=== PATIENT | male | born 1980 ===

== ENCOUNTER 2018-09-16 06:38 | Day surgery (SDC) | payer OTHER ==
[~2018-09-16] VITALS: Ht 162.6 cm; Wt 69.0 kg
[2018-09-16] VITALS (11 sets, daily range): BP systolic 106–121; BP diastolic 68–76; PULSE 56–80; RESP 14–18; Ht 162.6 cm; Wt 69.0 kg
[2018-09-16] MEDS ORDERED: LACTATED RINGER'S 1,000 ML IV SCH (09:00)
--- NOTE | 2018-09-16 10:59 | HPN ---
Date/Time of Note Date/Time of Note DATE: 09/16/18 TIME: 10:59 Interval H&P Admission Note Pt. seen H&P reviewed: No system changes KARY SANZ M.D. September 16, 2018 10:59
[2018-09-16] MEDS ORDERED: COCAINE 4% 4 ML TOP ONE (12:49)
[2018-09-16] MEDS ORDERED: NEOMYC/POLYMYX/BACIT 30 GM OINT ONE (12:49)
[2018-09-16] MEDS ORDERED: LIDOCAINE 1%/EPI (1:100,000) (MDV) 20 ML ONE (12:49)
--- NOTE | 2018-09-16 13:09 | PREAC ---
Date/Time of Note Date/Time of Note DATE: 09/16/18 TIME: 13:07 Anesthesia Eval and Record Evaluation Time Pre-Procedure Interview DATE: 09/16/18 TIME: 13:07 Age 37 Sex male NPO: 8 hrs Preoperative diagnosis Septum deviation, Hypertrophic tonsils Planned procedure Ravindra septoplasty, turbinoplasty Past Medical History Past Medical History: None Surgery & Anesthesia Issues No known issue Meds Anticoagulation: No Beta Dejan within 24 hr: No Reason Beta Dejan not given: Pt. not on B-Dejan No Active Prescriptions or Reported Meds Current Medications Lactated Ringer's 1,000 ml @ 25 mls/hr Q24H IV Last administered on 09/16/18at 09:12; Admin Dose 25 MLS/HR; Start 09/16/18 at 09:00 Meds reviewed: Yes Allergies Coded Allergies: No Known Allergy (Unverified , 09/16/18) Allergies Reviewed: Yes Labs/Studies Labs Reviewed: Reviewed by anesthesiologist test: N/A Studies: ECG Pre-procedure Exam Last vitals Vital Signs Date Temp Pulse Resp B/P (MAP) Pulse Ox O2 O2 Flow FiO2 Time Delivery Rate 09/16/18 97.5 56 16 106/74 99 Room Air 08:56 (85) Airway: Adequate mouth opening, Adequate thyromental dist Mallampati: Mallampati II Teeth: Normal Lung: Normal Heart: Normal ASA Physical Status ASA physical status: 2 Emergency: None Planned Anesthetic General/MAC: ETT Planned Pain Management Parenteral pain med Pre-operative Attestations Prior to commencing anesthesia and surgery, the patient was re-evaluated, there was verification of: *The patient's identity *The results of appropriate recent lab work and preoperative vital signs *The above evaluation not changing prior to induction *Anesthetic plan, risk benefits, alternative and complications discussed with patient/family; questions answered; patient/family understands, accepts and wishes to proceed. JOLANTA CONKLIN MD September 16, 2018 13:09
[2018-09-16] MEDS ORDERED: MIDAZOLAM 1 MG/ML 2 ML INJ ONE (13:14)
[2018-09-16] MEDS ORDERED: DEXAMETHASONE 4 MG/ML 5 ML INJ ONE (13:25)
[2018-09-16] MEDS ORDERED: CEFAZOLIN 1 GM INJ ONE ×2 (13:25→14:06)
[2018-09-16] MEDS ORDERED: GLYCOPYRROLATE 0.4 MG INJ ONE (13:58)
[2018-09-16] MEDS ORDERED: PROPOFOL 20 ML ONE (13:58)
[2018-09-16] MEDS ORDERED: LIDOCAINE 2% (SDV) 5 ML INJ ONE (13:58)
[2018-09-16] MEDS ORDERED: ROCURONIUM 50 MG INJ ONE (13:58)
[2018-09-16] MEDS ORDERED: NEOSTIGMINE 3 MG/3 ML SYRINGE ONE (13:58)
[2018-09-16] MEDS ORDERED: ONDANSETRON 4 MG INJ ONE (13:59)
--- NOTE | 2018-09-16 14:11 | OPR ---
Date/Time of Note Date/Time of Note DATE: 09/16/18 TIME: 14:07 Operative Report Procedure Date: September 16, 2018 Preoperative Diagnosis 1. SEPTAL DEVIATION. 2. NASAL BILATERAL TURBINATE HYPERTROPHY. 3. CHRONIC NASAL OBSTRUCTION. Postoperative Diagnosis SAME. Operation/Procedure Performed 1. SEPTOPLASTY VIA [facility]. 2. BILATERAL NASAL LASER KTP 532 NM TURBINOPLASTY VIA 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 Anesthesia Type: general (GENERAL ANESTHESIA WITH OT TUBE INTUBATION. TOPICAL COCCAINE 4% 4CC SOLN. 10 CC 1% LIDOCAINE WITH EPI 1:100,000 SOLN.) Estimated Blood Loss: 0 - 10 ml's Transfusion none Specimen SEPTAL CARTILAGE. Grafts/Implants none Tubes/Drains NONE. Complications none Pt Condition Post Procedure: stable Disposition: PACU Indications TO IMPROVE BREATHING. Procedure Description SEE DICTATED OPERATIVE REPORT. KARY SANZ M.D. September 16, 2018 14:11
--- NOTE | 2018-09-16 14:12 | PDOCDIS ---
Discharge Instructions DIAGNOSIS Discharge Diagnosis 1. SEPTAL DEVIATION. 2. NASAL BILATERAL TURBINATE HYPERTROPHY. 3. CHRONIC NASAL OBSTRUCTION. CONDITION [id number] Patient Condition: [id number] Good HOME CARE INSTRUCTIONS: [id number] Diet Instructions: [id number] Regular ACTIVITY: [id number] Activity Restrictions: [id number] Slowly Increase Activity Rest between Activity Avoid heavy lifting Avoid Heavy Housework [id number] Bathing Restrictions: [id number] Tub Bath FOLLOW UP/APPOINTMENTS Follow-up Plan MY OFFICE IN 7 TO 10 DAYS. SCHOOL/WORK RELEASE May return to School/Work on: September 23, 2018 May return to School/Work with: No Restrictions KARY SANZ M.D. September 16, 2018 14:12
--- NOTE | 2018-09-16 14:21 | PAC ---
Date/Time of Note Date/Time of Note DATE: 09/16/18 TIME: 14:20 Post-Anesthesia Notes Post-Anesthesia Note Last documented vital signs Vital Signs Date Temp Pulse Resp B/P (MAP) Pulse Ox O2 O2 Flow FiO2 Time Delivery Rate 09/16/18 97.5 56 16 106/74 99 Room Air 08:56 (85) Activity: WNL Respiratory function: WNL Cardiovascular function: WNL Mental status: Baseline Pain reasonably controlled: Yes Hydration appropriate: Yes Nausea/Vomiting absent: Yes Comments BP:116/74, P:82, Spo2:100%, T:98,5 JOLANTA CONKLIN MD September 16, 2018 14:21
[2018-09-16] MEDS ORDERED: MEPERIDINE 25 MG INJ IV PRN (14:30)
[2018-09-16] MEDS ORDERED: FENTAnyl 50 MCG/ML VIAL IV PRN (14:30)
[2018-09-16] MEDS ORDERED: HYDROmorphONE 1 MG/5 ML IV SYRINGE IV PRN (14:30)
[2018-09-16] MEDS ORDERED: DIPHENHYDRAMINE 50 MG INJ IV PRN (14:30)
[2018-09-16] MEDS ORDERED: ONDANSETRON 4 MG INJ IV PRN (14:30)
[2018-09-16] MEDS: HYDROmorphONE 1 MG/5 ML IV SYRINGE IV PRN ×2 (14:42→14:50)
--- NOTE | 2018-09-17 06:48 | OPR ---
DATE OF OPERATION: 09/16/2018 SURGEON: Allan Hernandez MD PREOPERATIVE DIAGNOSES: 1. Septal deviation. 2. Bilateral nasal turbinate tissue hypertrophy. 3. Bilateral chronic nasal obstruction. POSTOPERATIVE DIAGNOSES: 1. Septal deviation. 2. Bilateral nasal turbinate tissue hypertrophy. 3. Bilateral chronic nasal obstruction. OPERATION PERFORMED: 1. Septoplasty with submucosal resection technique. 2. Bilateral laser turbinoplasty procedure using KTP 532 nanometer laser using submucosal resection technique. ESTIMATED BLOOD LOSS: Approximately 10 mL. COMPLICATIONS: No complications. SPECIMENS SENT TO LABORATORY: Septal cartilage for gross and microscopic evaluation. INDICATIONS: Mr. Buckley is a 37-year-old male who has a history of chronic nasal obstruction treated with multiple nasal steroids and decongestant medications which have met with failure. The patient continues to have chronic nasal obstruction due to enlarged turbinates and septal deviation. The patient is currently scheduled for laser procedure and signed a consent. Risks include infection, bleeding, scar formation, possible septal perforation as well as possible damage to lingual nerve which could result in upper teeth numbness. The patient also understands the risks of general and local anesthetic agents and their possible side effects. He signed a consent again once his questions were answered. FINDINGS DURING PROCEDURE: Anterior nasoseptal deflection with a right mid septal deviation. No signs of malignancies or tumors present during the procedure. There was papillomatous mucosal changes noted in the inferior turbinate bilaterally. ANESTHETIC USED: General anesthesia with orotracheal tube intubation. The patient also received 10 mL of 1% lidocaine with epinephrine 1:100,000. The patient also had cocaine topical 4 mL. The patient also was given Ancef and Decadron before the case was begun. DESCRIPTION OF PROCEDURE: The patient was taken to the operating room, placed on the surgical table in supine position, made comfortable by the anesthesiologist, Dr. Ellis. The patient had EKG, saturation monitoring and blood pressure cuff applied. At this point, the patient had previous started IV in the preinduction area which was infusing well. The patient was then given IV sedation and placed under general anesthesia. The patient was then successfully orotracheally intubated with orotracheal cuff tube without any complications. Tube was then taped to the right corner in the mouth and the eyes were taped for protection. At this point, a brief time-out with patient identification and procedures entertained and all were in agreement. The patient was then draped out in usual sterile fashion using towels and a split sheet. Wet towels were placed over the dry towels over the right nasal area in preparation for laser use. At this point, the patient's nasal cavity was inspected and found to have anterior septal deflection with right deviation of the mid portion of septum. There were no polyps seen. The inferior turbinate was injected with 1% lidocaine with epinephrine 1:100,000. This was down to septum, floor of the nose and the nasal spine area. At this point, cottonoids soaked in 4% cocaine was then applied to the anterior ethmoid behind the middle turbinate area. The vital signs were noted to be stable. A KTP 532 nanometer laser was then made ready at 8 mendez continuous power. Using straight hand-held handpiece with suction attachment, the laser was introduced to the left inferior turbinate. Using a stabbing technique in the submucosal space, the laser was activated using foot pedal. The inferior turbinate was then noted to shrink in size and laser was discharged in the submucosal space. The inferior turbinate enlargement with the KTP reducing the turbinate in the submucosal space. This ended the laser portion of the procedure as the septoplasty was approached. At this point, the incision was created on the left side of the nose along the anterior margin of the septum with a #15 Bard-Talib sharp stainless steel blade. The Noe elevator was then used to elevate a mucoperichondrial flap. A Noe elevator was then used to elevate a mucoperichondrial flap on the left side of the nose. Care was taken not to tear the flap as the anterior septal margin on the right side was elevated using the same Noe elevator. The anterior septal deflection was then removed using Sharee forceps and septal cartilage for gross identification. Hemitransfixion incision was closed with 4- 0 Vicryl suture in simple interrupted fashion. At this point, the nasal septum and the portion of the of the anterior septum was noted be in the midline. The flaps were inspected for tears. There were no tears evident. At this point, no further bleeding was noted in the nasal cavity as the bacitracin ointment was placed in the nose as a packing at the end of the procedure. Sponge counts and instrument count were correct x3. There were no complications during the procedure. The patient was extubated in the operating room, taken to recovery room after a mustache dressing was placed beneath the nose. The patient is expected to be discharged to home unless postoperative complications develop. Dictated By: ALLAN DENNISON/KATELYN Conf#: [id number] DID#: [id number] MTDD
== END 2018-09-16 16:49 | disposition home or self-care (01) ==
LOC: SDS 06:38
PROVIDERS: ATTEND Otolaryngology Otolaryngology/Facial Plastic Surgery
DX: J34.2 Deviated nasal septum (principal); J34.3 Hypertrophy of nasal turbinates
CPT/HCPCS: 30140; 30520; 88300; J0690; J1170; J2250; J2405; J2710; J3010; Z7512; Z7610; J1100